=== PATIENT | male | born 1940 | race Caucasian/White ===

== ENCOUNTER 2016-10-13 16:35 | Emergency (ER) | payer MEDICARE ==
[2016-10-13 17:37] LABS: #Basophils 0.1 thou/uL (0.0-0.2); #Eosinphils 0.1 thou/uL (0.0-0.7); #Lymphocytes 2.3 thou/uL (1.20-3.40); #Monocytes 0.7 thou/uL (0.11-0.59); %Basophils 0.8 % (0.0-1.0); %Eosinophils 1.3 % (0.0-10.0); %Lymphocytes 20.5 % (21.0-51.0); %Monocytes 5.9 % (0.0-10.0); %Neutrophils 71.6 % (42.0-75.0); Hemoglobin 12.2 g/dL (14.0-18.0); Mean Corpuscular HGB CONC 33.3 g/dL (32.0-36.0); Mean Corpuscular Hemoglobin 31.2 pg (27.0-31.0); Mean Corpuscular Volume 93.6 fl (80.0-94.0); Mean Platelet Volume 7.5 fL (7.4-10.4); Platelet Count 267 thou/uL (130-400); RBC Distribution Width 12.3 % (11.5-14.5); Red Blood Cell (RBC) Count 3.91 mill/uL (4.70-6.10); White Blood Cell (WBC) Count 11.2 thou/uL (4.8-10.8)
[2016-10-13 17:41] LABS: INR-International Normal Ratio 1.1; Prothrombin Time 14.1 SEC (12.0-14.7)
[2016-10-13 17:53] LABS: ALT (SGPT) 22 U/L (0-55); AST (SGOT) 17 U/L (5-34); Acetaminophen Less than 3.0 mcg/mL (10.0-30.0); Albumin 2.9 g/dL (3.4-4.8); Alcohol Less than 10 mg/dL (Less than 10); Alkaline Phosphatase 87 U/L (40-150); Anion Gap 16 mmol/L (10-20); BUN (Urea Nitrogen) 48 mg/dL (8.4-25.7); Bilirubin, Total Less than 0.3 mg/dL (0.2-1.2); Calc. Creatinine Clearance 0 mL/min (70-130); Calcium 8.8 mg/dL (7.8-10.44); Carbon Dioxide 22 mmol/L (23-31); Chloride 103 mmol/L (98-107); Estimated GFR-MDRD 24; Globulin 4.2 g/dL (2.4-3.5); Glucose 194 mg/dL (83-110); Potassium 5.8 mmol/L (3.5-5.1); Protein, Total 7.1 g/dL (5.8-8.1); Salicylate Less than 5.0 mg/dL (15.0-30.0); Sodium 135 mmol/L (136-145)
[2016-10-13] MEDS ORDERED: Dexamethasone 10 MG/ML VIAL ONE (18:35)
[2016-10-13] MEDS ORDERED: methylPREDNISolone Sod Succ/PF 125 MG/2 ML VIAL ONE (18:35)
--- NOTE | 2016-10-13 19:31 | CT ---
CT HEAD NONCONTRAST: Date: 10/13/16 INDICATION: Altered mental status. No prior comparison. FINDINGS: There is a round intra-axial hypodense mass measuring approximately 2.4 cm with surrounding vasogeni c edema. Vasogenic edema also involves the right frontal lobe. No significant midline shift. There i s effacement of the anterior aspect of each lateral ventricle. There is hypodensity of the right occ ipital lobe, which could be on the basis of gliosis or edema. Component of right temporal hypoattenu ation adjacent to the temporal horn is also present, nonspecific. IMPRESSION: Cystic lesion in left frontal lobe with surrounding vasogenic edema, as well as a prominent degree o f right frontal lobe vasogenic edema. Findings may either reflect metastatic disease versus intracra nial infection. Additional sites of hypoattenuation of the cerebral parenchyma also present. This re quires contrast enhanced MRI brain for further evaluation. These findings were telephoned to patient's physician, Harley Hurst, in the emergency department at 17 40 hours on 10/13/16. CODE CR. POS: MURALI
== END 2016-10-13 18:49 | disposition short-term general hospital (02) ==
LOC: MADERS 16:35
DX: G93.6 Cerebral edema (principal); E87.5 Hyperkalemia; E78.5 Hyperlipidemia, unspecified; E11.8 Type 2 diabetes mellitus with unspecified complications; Z79.4 Long term (current) use of insulin; I12.9 Hypertensive chronic kidney disease with stage 1 through stage 4 chronic kidney disease, or unspecified chronic kidney disease; F17.210 Nicotine dependence, cigarettes, uncomplicated; N18.9 Chronic kidney disease, unspecified
CPT/HCPCS: 36415; 36416; 70450; 80053; 80307; 83880; 84443; 85025; 85610; 85730; 86140; 87040; 96374; J1100; J2930